=== PATIENT | male | born 1990 | race African-American/Black ===

== ENCOUNTER 2018-12-13 17:20 | Emergency (ER) | payer MEDICAID ==
[~2018-12-13] VITALS: Ht 195.6 cm; Wt 95.3 kg
--- NOTE | 2018-12-13 17:48 | Emergency Room Report ---
History of Present Illness General Chief Complaint: Lower Extremity Injury Source: Patient (Marie Kitchen) Present Illness HPI 28-year-old male presents to the emergency department complaining of 4 out of 10 severity discomfort and stiffness to the left knee x1 week. Patient reports subjective swelling, clicking and increased pressure in the left knee he denies instability, trauma or fall. Patient reports he notices his symptoms predominantly when extending his leg. Patient denies previous injury to this extremity/joint. Reports Meniscal injury/ligamental injury to the alternate knee. Denies erythema, warmth or open wounds near the site of his symptoms. He took IBU 800mg once with some relief, however his symptoms returned. No other aggravating or relieving factors. (Marie Kitchen) Allergies: Coded Allergies: No Known Allergies (Unverified , 12/13/18) Patient History Past Medical History: see triage record Past Surgical History: none Pertinent Family History: none Reviewed Nursing Documentation: PMH: Agreed; PSxH: Agreed (Marie Kitchen) Nursing Documentation-PMH Past Medical History: No Stated History (Marie Kitchen) Review of Systems All Other Systems: negative except mentioned in HPI (Marie Kitchen) Physical Exam Vital Signs Date Time Temp Pulse Resp B/P (MAP) Pulse Ox O2 Delivery O2 Flow Rate FiO2 12/13/18 17:25 98.2 60 18 127/66 (86) 96 Room Air Sp02 EP Interpretation: reviewed, normal General Appearance: no apparent distress, alert, GCS 15, non-toxic Head: normocephalic, atraumatic Eyes: bilateral eye normal inspection, bilateral eye PERRL ENT: hearing grossly normal, normal voice Neck: full range of motion Respiratory: lungs clear, normal breath sounds, speaking full sentences Cardiovascular #1: regular rate, rhythm Musculoskeletal: back normal, gait/station normal, normal range of motion, other - No increased laxity upon varus or valgus stressing, negative anterior and posterior drawer signs Neurologic: alert, oriented x3, responsive, motor strength/tone normal, sensory intact, normal gait, speech normal, grossly normal Psychiatric: judgement/insight normal (Marie Kitchen) Medical Decision Making PA Attestation Dr. Perez is my supervising Physician whom patient management has been discussed with. (Marie Kitchen) Diagnostic Impression: Primary Impression: Knee effusion, left Additional Impressions: Joint pain Qualified Codes: M25.562 - Pain in left knee Degenerative arthritis of knee Qualified Codes: M17.32 - Unilateral post-traumatic osteoarthritis, left knee ER Course 28-year-old male presents to the emergency department complaining of 4 out of 10 severity discomfort and stiffness to the left knee x1 week. Patient reports subjective swelling, clicking and increased pressure in the left knee he denies instability, trauma or fall. Patient reports he notices his symptoms predominantly when extending his leg. Patient denies previous injury to this extremity/joint. Reports Meniscal injury/ligamental injury to the alternate knee. Denies erythema, warmth or open wounds near the site of his symptoms. He took IBU 800mg once with some relief, however his symptoms returned. No other aggravating or relieving factors. Ddx considered but are not limited to Fracture, Dislocation, Contusion, Sprain/ Strain/Spasm, effusion, Meniscal Injury, Ligamental Tear, Gout or Septic Joint just to name a few. Vital signs: are WNL, pt. is afebrile H&PE are most consistent with musculoskeletal injury will perform imaging to r/ o fractures/dislocations.--- no increased laxity on exam. no obvious deformities or instability. ORDERS: - X-ray Left KNEE 3 VIEWS - negative for fx, Dislocation, or significant soft tissue injury, per preliminary read in ED, and signed by TOMI Kitchen , my supervising physician has reviewed, and agrees with my interpretation. ED INTERVENTIONS: -Pt. denies Chaparro Wrap. -I do not identify an emergent condition at this time. With current presentation , pt. is stable for close outpatient follow up and conservative treatment. D/ w pt. to return promptly to ED with worsening or new symptoms.- Pt. verbalizes' understanding and agreement with proposed treatment plan.proposed treatment plan. DISCHARGE: At this time pt. is stable for d/c to home. Will provide printed patient care instructions, and any necessary prescriptions. Care plan and follow up instructions have been discussed with the patient prior to discharge. (Marie Kitchen) Other X-Ray Diagnostic Results Other X-Ray Diagnostic Results : X-Ray ordered: Left Knee # of Views/Limited Vs Complete: 3 View Indication: Pain EP Interpretation: Yes TOMI Xray: Interpretation reviewed, by supervising MD, and agrees with findings. Interpretation: no dislocation, no soft tissue swelling, no fractures, other - moderate degenerative changes, no acute fractures. Impression: Other - abnormal Electronically Signed by: Marie Kitchen PA-C (Marie Kitchen) Other X-Ray Diagnostic Results : Electronically Signed by: Kole Hu documentation of Xray reviewed by me and is accurate, Junito Perez MD (Junito Perez MD) Last Vital Signs Date Time Temp Pulse Resp B/P (MAP) Pulse Ox O2 Delivery O2 Flow Rate FiO2 12/13/18 17:25 98.2 60 18 127/66 (86) 96 Room Air Status: improved (Marie Kitchen) Disposition: HOME, SELF-CARE Condition: Stable Scripts Ibuprofen* (MOTRIN*) 800 Mg Tablet 800 MG ORAL THREE TIMES A DAY, #30 TAB 0 Refills Prov: Marie Kitchen 12/13/18 Patient Instructions: Knee Effusion, [id number], Knee Pain, [id number] Additional Instructions: Take medications as directed. Follow up with an [facility] in 3-5 days, even if your symptoms have resolved. If symptoms persist MRI may be required at the discretion of your PCP or Ortho Specialist. --Please review list of primary care clinics, if you do not already have a primary care provider who can give you an Orthopedic Referral. Return sooner to ED if new symptoms occur, or current symptoms become worse. - Please note that this Emergency Department Report was dictated using [employer]bead cutter technology software, occasionally this can lead to erroneous entry secondary to interpretation by the dictation equipment. Marie Kitchen Dec 13, 2018 17:48 Junito Perez MD Dec 14, 2018 05:42
[2018-12-13] MEDS ORDERED: IBUPROFEN800 MG ORAL (18:26)
[2018-12-13 18:31] VITALS: BP 124/71
--- NOTE | 2018-12-14 12:52 | Diagnostic Imaging Report ---
INDICATION: Knee Pain COMPARISON: None 3 views of the left knee were obtained. FINDINGS: There is no fracture identified. There is osteoarthritis moderate in degree characterized by narrowing of the joint space and marginal spur formation especially in the patellofemoral compartment. Small joint effusion is suspected. IMPRESSION: Osteoarthritis. Joint effusion
== END 2018-12-13 18:31 | disposition home or self-care (01) ==
LOC: EMR 18:25
DX: M25.462 Effusion, left knee (principal); M25.562 Pain in left knee; M17.32 Unilateral post-traumatic osteoarthritis, left knee
CPT/HCPCS: 99283